=== PATIENT | male | born 1990 | race Caucasian/White ===

== ENCOUNTER 2024-04-20 02:29 | Emergency (ER) | payer BC, MEDICAID ==
[~2024-04-20] VITALS: Ht 185.4 cm; Wt 80.0 kg
[2024-04-20 03:01] VITALS: O2SAT 99
[2024-04-20] MEDS: KETOROLAC 15MG/ML VIAL IM ONE (04:04)
[2024-04-20] MEDS ORDERED: LIDO700A15 TP (04:33)
[2024-04-20] MEDS ORDERED: NAPR-1176 MT (04:33)
[2024-04-20 04:55] VITALS: BP 128/62; PULSE 75; RESP 16; TEMP 36.89184; O2SAT 99
== END 2024-04-20 04:57 | disposition home or self-care (01) ==
LOC: ER 02:29
DX: S40.012A Contusion of left shoulder, initial encounter (principal); V49.9XXA Car occupant (driver) (passenger) injured in unspecified traffic accident, initial encounter; Y93.89 Activity, other specified; Y92.89 Other specified places as the place of occurrence of the external cause; Y99.8 Other external cause status
CPT/HCPCS: 99283; 73030; 96372; J1885